=== PATIENT | female | born 1980 | race Two or more races ===

== ENCOUNTER → 2019-06-23 | Outpatient (REF) | payer OTHER | LOC: M SFHCLERA 11:10 | PROVIDERS: ATTEND Physician Assistant | DX: R10.2 Pelvic and perineal pain (principal) | CPT/HCPCS: 81002; 81025; 87070; 87086; G0463 ==

== ENCOUNTER → 2019-09-07 | Outpatient (REF) | payer OTHER | LOC: M SFHCLERA 17:46 | PROVIDERS: ATTEND Nurse Practitioner Family | DX: J02.9 Acute pharyngitis, unspecified (principal) ==

== ENCOUNTER → 2021-02-11 | Outpatient (REF) | payer OTHER | LOC: M LAB REF 15:38 | PROVIDERS: ATTEND Physician Assistant | DX: J02.9 Acute pharyngitis, unspecified (principal) ==